=== PATIENT | female | born 1980 | race African-American/Black ===

== ENCOUNTER 2016-05-24 21:00 | Emergency (ER) | payer OTHER ==
[~2016-05-24] VITALS: Ht 162.6 cm; Wt 97.5 kg
--- NOTE | ~2016-05-24 | EKG ---
[place] [address] [facility] [email or web address] [address] ELECTROCARDIOGRAM REPORT Name: LUISA NORTON Room #: DEP [facility]#: [id number] Admission: 05/24/16 Attend Phys: Discharge: 05/25/16 Date of : 80 Report #: [id number] THIS REPORT FOR: //name// [facility] ED Test Date: 2016-05-24 Test Time: 21:11:12 Pat Name: LUISA NORTON Department: Room: Gender: F Certified Surgical Tech/First Assistant: Paula VANCE : 1980 Requested By: Murphy Jacob Order Number: [id number] MD: Jovanny Argueta Measurements Intervals [place] Rate: 86 P: 59 [place]: 149 QRS: 8 QRSD: 88 T: 45 QT: 368 QTc: 440 Interpretive Statements Sinus rhythm Borderline T abnormalities, anterior leads Baseline wander in lead(s) V6 Compared to ECG 07/31/2015 10:38:56 T-wave abnormality now present Electronically Signed On 05-25-2016 8:32:37 CDT by Jovanny Argueta [email or web address] <ELECTRONICALLY SIGNED> By: Jovanny Argueta MD, [facility] 05/25/16 0832 10 10 Jovanny Argueta MD, [facility] /EPI
[~2016-05-24 21:00] MED LIST: ACETAMINOPHEN325 M1 PO; COLACE100 MG PO; FLAGYL500 MG PO; HYDROCODON-ACE1 EAC8 PO; IBUPROFEN 200200 M1 PO; IBUPROFEN 600600 M1 PO; IRON SUPPLEMEN325 MG PO; IRON325 PO; KEFLEX500 MG PO; NAPROSYN500 MG PO; NOHOMEMEDICATIONS; NORCO 5-325 TA1 EACH PO; NORFLEX100 MG PO; PREDNISONE 20 M20 MG PO; TRAMADOL 50 MG50 MG PO; VITAMIN B-12500 MCG PO; VITAMINC500 PO; ZANTAC 150MG T150 MG PO
[2016-05-24 21:36] LABS: HEMATOCRIT 40.2 % (37.0-47.0); HEMOGLOBIN 13.7 gm/dL (12.0-15.0); MCH 31.4 pg (26.0-34.0); MCHC 34.1 g/dL (28.0-37.0); MCV 92.1 fL (80.0-100.0); PLATELET COUNT 263 thou/uL (150-400); RBC 4.37 mil/uL (4.20-5.00); RDW 14.5 % (10.5-14.5); WBC 6.9 thou/uL (4.0-11.0)
[2016-05-24 21:38] LABS: MANUAL DIFF YES
[2016-05-24 21:52] LABS: ALKALINE PHOSPHATASE 84 U/L (46-116); ANION GAP 10 mmol/L (7-16); BUN 16 mg/dL (7-18); CALCIUM 9.3 mg/dL (8.5-10.1); CHLORIDE 103 mmol/L (98-107); CO2 27 mmol/L (21-32); CREATININE 0.9 mg/dL (0.6-1.0); DIRECT BILIRUBIN < 0.1 mg/dL (<0.1-0.3); GLUCOSE 79 mg/dL (74-106); SGOT 39 U/L (15-37); SGPT 46 U/L (30-65); SODIUM 140 mmol/L (136-145); TOTAL BILIRUBIN 0.4 mg/dL (<0.1-1.0); TOTAL PROTEIN 8.9 g/dL (6.4-8.2); TROPONIN-I < 0.04 ng/mL (<0.04-0.07)
[2016-05-24 22:02] LABS: POTASSIUM 4.1 mmol/L (3.5-5.1)
[2016-05-24 22:49] LABS: ANISOCYTOSIS SLIGHT; TOTAL CELL COUNT 100
== END 2016-05-25 | disposition home or self-care (01) ==
LOC: ER 21:00
PROVIDERS: Emergency Medicine
DX: R07.9 Chest pain, unspecified (principal); K21.9 Gastro-esophageal reflux disease without esophagitis; Z86.2 Personal history of diseases of the blood and blood-forming organs and certain disorders involving the immune mechanism; Z90.710 Acquired absence of both cervix and uterus; Z88.8 Allergy status to other drugs, medicaments and biological substances

== ENCOUNTER 2016-11-03 21:17 | Emergency (ER) | payer OTHER ==
[~2016-11-03] VITALS: Ht 160 cm; Wt 99.8 kg
[2016-11-03] MEDS ORDERED: NOHOMEMEDICATIONS (21:22)
[2016-11-03 22:33] LABS: ICTOTEST (BILI CONFIRMATORY) Negative (Negative); URINE BILIRUBIN 1+ (Negative); URINE BLOOD NEGATIVE (Negative); URINE COLOR YELLOW; URINE GLUCOSE-RANDOM* NEGATIVE (Negative); URINE KETONES 1+ (Negative); URINE LEUKOCYTES-REFLEX NEGATIVE (Negative); URINE PROTEIN (DIPSTICK) NEGATIVE (Negative); URINE SPECIFIC GRAVITY >= 1.030 (1.003-1.035); URINE UROBILINOGEN 0.2 E.U./dl (0.2-1.0)
[2016-11-04 00:07] LABS: ABSOLUTE NEUTROPHILS 2.2 thou/uL (1.4-8.2); BASOPHILS 0.7 % (0.0-2.0); EOSINOPHILS 0.9 % (0.0-3.0); HEMATOCRIT 39.8 % (37.0-47.0); HEMOGLOBIN 13.5 gm/dL (12.0-15.0); MANUAL DIFF NO; MCH 31.1 pg (26.0-34.0); MCHC 33.9 g/dL (28.0-37.0); MCV 91.7 fL (80.0-100.0); MONOCYTES 10.4 % (1.0-8.0); PLATELET COUNT 245 thou/uL (150-400); RBC 4.34 mil/uL (4.20-5.00); RDW 14.9 % (10.5-14.5); WBC 6.2 thou/uL (4.0-11.0)
[2016-11-04 00:14] LABS: CALCIUM 9.8 mg/dL (8.5-10.1); CREATININE 0.7 mg/dL (0.6-1.0); POTASSIUM 3.4 mmol/L (3.5-5.1)
[2016-11-04 00:19] LABS: ALBUMIN 4.2 g/dL (3.4-5.0); TOTAL BILIRUBIN 0.4 mg/dL (<0.1-1.0)
[2016-11-04] MEDS ORDERED: COLACE100 MG PO (01:33)
[2016-11-04] MEDS ORDERED: ULTRAM 50MG TAB50 MG PO (01:33)
== END 2016-11-04 01:52 | disposition home or self-care (01) ==
LOC: ER 21:17
PROVIDERS: Emergency Medicine; Physician Assistant
DX: R10.32 Left lower quadrant pain (principal); K21.9 Gastro-esophageal reflux disease without esophagitis; F10.99 Alcohol use, unspecified with unspecified alcohol-induced disorder; Z86.2 Personal history of diseases of the blood and blood-forming organs and certain disorders involving the immune mechanism; Z90.710 Acquired absence of both cervix and uterus

== ENCOUNTER 2017-08-24 19:22 | Emergency (ER) | payer OTHER ==
[~2017-08-24] VITALS: Ht 162.6 cm; Wt 102.1 kg
[~2017-08-24 19:22] MED LIST changes: +ANTIVERT25 MG PO; +PROTONIX40 M1 PO; +ULTRAM 50MG TAB50 MG PO
[2017-08-24] MEDS ORDERED: FLEXERIL PO (20:12)
[2017-08-24] MEDS ORDERED: SENNA-DOCUSATE1 EACH PO (20:12)
[2017-08-24] MEDS ORDERED: NORCO 5-325 TA1 EACH PO (20:12)
== END 2017-08-24 20:36 | disposition home or self-care (01) ==
LOC: ER 19:22
DX: S70.12XA Contusion of left thigh, initial encounter (principal); K21.9 Gastro-esophageal reflux disease without esophagitis; F41.9 Anxiety disorder, unspecified; Z90.710 Acquired absence of both cervix and uterus; W18.39XA Other fall on same level, initial encounter; Y92.89 Other specified places as the place of occurrence of the external cause; Y93.89 Activity, other specified; Y99.8 Other external cause status

== ENCOUNTER 2019-04-07 19:17 | Emergency (ER) | payer BC ==
[~2019-04-07] VITALS: Ht 162.6 cm; Wt 102.1 kg
[~2019-04-07 19:17] MED LIST changes: +FLEXERIL PO; +PENICILLIN V P500 MG PO; +SENNA-DOCUSATE1 EACH PO
[2019-04-07] MEDS ORDERED: ASA81BEC PO (19:21)
[2019-04-07 20:28] LABS: ABSOLUTE NEUTROPHILS 2.3 thou/uL (1.4-8.2); BASOPHILS 0.6 % (0.0-2.0); EOSINOPHILS 1.5 % (0.0-3.0); HEMOGLOBIN 12.9 gm/dL (12.0-15.0); LYMPHOCYTES 49.1 % (24.0-44.0); MCH 30.9 pg (26.0-34.0); MCHC 33.1 g/dL (28.0-37.0); MCV 93.5 fL (80.0-100.0); MONOCYTES 9.9 % (1.0-8.0); PLATELET COUNT 242 thou/uL (150-400); POLYS 38.9 % (36.0-66.0); RBC 4.17 mil/uL (4.20-5.00); RDW 14.3 % (10.5-14.5); WBC 5.8 thou/uL (4.0-11.0)
[2019-04-07 20:35] LABS: ANION GAP 10 mmol/L (7-16); BUN 17 mg/dL (7-18); CALCIUM 9.3 mg/dL (8.5-10.1); CHLORIDE 100 mmol/L (98-107); CO2 27 mmol/L (21-32); CREATININE 0.9 mg/dL (0.6-1.0); GLUCOSE 81 mg/dL (74-106); POTASSIUM 3.5 mmol/L (3.5-5.1); SODIUM 137 mmol/L (136-145)
[2019-04-07 20:45] LABS: ALBUMIN 3.9 g/dL (3.4-5.0); SGOT 16 U/L (15-37); SGPT 40 U/L (30-65); TOTAL BILIRUBIN 0.2 mg/dL (<0.1-1.0); TOTAL PROTEIN 8.6 g/dL (6.4-8.2); TROPONIN-I <0.06 ng/mL (<0.06)
[2019-04-07] MEDS ORDERED: BUTALB-APAP-CA1 EACH PO (21:02)
[2019-04-07] MEDS ORDERED: ULTRAM 50MG TAB50 MG PO (21:02)
[2019-04-07 21:20] VITALS: BP 115/67
--- NOTE | 2019-04-10 08:28 | EKG ---
[facility] [place] [address] ELECTROCARDIOGRAM REPORT Name: LUISA NORTON Room #: DEP [facility]#: [id number] Admission: 04/07/19 Attend Phys: Discharge: 04/07/19 Date of : [birth year] Report #: [id number] THIS REPORT FOR: cc: JOYCE - Becky family physician/PCP JOYCE - Becky family physician/PCP Jovanny Argueta MD [facility] THIS REPORT FOR: //name// [facility] ED Test Date: 2019-04-07 Test Time: 20:21:40 Pat Name: LUISA NORTON Department: Room: Gender: F Machine Setup Operator: MADELINE : 1980 Requested By: Maxine Naylor Order Number: [id number] MD: Jovanny Argueta Measurements Intervals [place] Rate: 70 P: 48 [place]: 159 QRS: 20 QRSD: 87 T: 29 QT: 382 QTc: 413 Interpretive Statements Sinus rhythm Normal tracing Compared to ECG 06/16/2017 14:27:37 No significant changes Electronically Signed On 04-10-2019 8:27:08 E [employer] by Jovanny Argueta [email or web address] <ELECTRONICALLY SIGNED> By: Jovanny Argueta MD, FAC 04/10/19 0827 20 20 Jovanny Argueta MD, [facility] /EPI
== END 2019-04-07 21:20 | disposition home or self-care (01) ==
LOC: ER 19:17
PROVIDERS: Physician Assistant
DX: B34.9 Viral infection, unspecified (principal); M54.6 Pain in thoracic spine; M79.605 Pain in left leg; K21.9 Gastro-esophageal reflux disease without esophagitis; Z86.2 Personal history of diseases of the blood and blood-forming organs and certain disorders involving the immune mechanism; Z90.710 Acquired absence of both cervix and uterus; Z98.51 Tubal ligation status; Z88.8 Allergy status to other drugs, medicaments and biological substances

== ENCOUNTER 2019-10-17 08:48 | Emergency (ER) | payer OTHER ==
[~2019-10-17] VITALS: Ht 162.6 cm; Wt 99.8 kg
[~2019-10-17 08:48] MED LIST changes: +ASA81BEC PO; +BUTALB-APAP-CA1 EACH PO
[2019-10-17] MEDS ORDERED: NOHOMEMEDICATIONS (09:07)
[2019-10-17 10:07] LABS: ABSOLUTE NEUTROPHILS 2.2 thou/uL (1.4-8.2); BASOPHILS 0.9 % (0.0-2.0); HEMATOCRIT 37.6 % (37.0-47.0); HEMOGLOBIN 12.6 gm/dL (12.0-15.0); LYMPHOCYTES 43.1 % (24.0-44.0); MCH 31.5 pg (26.0-34.0); MCHC 33.5 g/dL (28.0-37.0); MONOCYTES 10.4 % (1.0-8.0); PLATELET COUNT 249 thou/uL (150-400); POLYS 43.6 % (36.0-66.0); RDW 14.3 % (10.5-14.5)
[2019-10-17 10:26] LABS: APTT 31.3 Seconds (24.5-32.8); D-DIMER 0.78 ug/mLFEU (0.19-0.50); INR 1.1
[2019-10-17 10:53] LABS: CALCIUM 8.4 mg/dL (8.5-10.1); CREATININE 0.8 mg/dL (0.6-1.0); POTASSIUM 4.2 mmol/L (3.5-5.1)
[2019-10-17 10:56] LABS: ALBUMIN 3.3 g/dL (3.4-5.0); MAGNESIUM 1.9 mg/dL (1.8-2.4); TOTAL BILIRUBIN 0.3 mg/dL (0.2-1.0); TOTAL PROTEIN 7.5 g/dL (6.4-8.2)
[2019-10-17] MEDS ORDERED: NAPROSYN500 MG PO (11:07)
[2019-10-17 11:16] VITALS: BP 114/71
[2019-10-17 11:18] LABS: AMP/METHAMP Negative (Negative); BARBITURATES Negative (Negative); BENZODIAZEPINES Negative (Negative); COCAINE Negative (Negative); METHADONE Negative (Negative); OPIATES Negative (Negative); PCP Negative (Negative)
--- NOTE | 2019-10-17 16:28 | EKG ---
[facility] [place] [address] ELECTROCARDIOGRAM REPORT Name: LUISA NORTON Room #: DEP [facility].#: [id number] Admission: 10/17/19 Attend Phys: Discharge: 10/17/19 Date of : [birth year] Report #: [id number] THIS REPORT FOR: cc: JOYCE - Becky family physician/PCP JOYCE - Becky family physician/PCP Jovanny Argueta MD [facility] THIS REPORT FOR: //name// [facility] ED Test Date: 2019-10-17 Test Time: 09:04:59 Pat Name: LUISA NORTON Department: Room: Gender: F Air Chipper: [facility] : 1980 Requested By: Charanjit Adler Order Number: [id number] MD: Jovanny Argueta Measurements Intervals [place] Rate: 72 P: 27 [place]: 162 QRS: 26 QRSD: 90 T: 31 QT: 395 QTc: 433 Interpretive Statements Sinus rhythm Normal tracing Compared to ECG 04/07/2019 20:21:40 No significant changes Electronically Signed On 10-17-2019 16:28:18 CDT by Jovanny Argueta [email or web address] <ELECTRONICALLY SIGNED> By: Jovanny Argueta MD, FACC 10/17/19 1628 0904 0904 Jovanny Argueta MD, [facility] /EPI
== END 2019-10-17 11:16 | disposition home or self-care (01) ==
LOC: ER 08:48
PROVIDERS: Emergency Medicine
DX: R07.89 Other chest pain (principal); R51 Headache; M79.652 Pain in left thigh; M25.562 Pain in left knee; R20.0 Anesthesia of skin; R20.2 Paresthesia of skin; M79.89 Other specified soft tissue disorders; R68.2 Dry mouth, unspecified; H53.8 Other visual disturbances; K59.00 Constipation, unspecified; K21.9 Gastro-esophageal reflux disease without esophagitis; Z90.711 Acquired absence of uterus with remaining cervical stump; Z98.51 Tubal ligation status; Z88.8 Allergy status to other drugs, medicaments and biological substances; Z86.718 Personal history of other venous thrombosis and embolism

== ENCOUNTER 2020-01-31 04:03 | Emergency (ER) | payer BC ==
[~2020-01-31] VITALS: Ht 162.6 cm; Wt 99.8 kg
[2020-01-31 07:03] VITALS: BP 123/84
--- NOTE | 2020-02-01 07:22 | EKG ---
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
== END 2020-01-31 07:04 | disposition home or self-care (01) ==
LOC: ER 04:03
DX: R07.89 Other chest pain (principal); R10.13 Epigastric pain; M25.512 Pain in left shoulder; M54.2 Cervicalgia; K21.9 Gastro-esophageal reflux disease without esophagitis; I25.10 Atherosclerotic heart disease of native coronary artery without angina pectoris; Z86.2 Personal history of diseases of the blood and blood-forming organs and certain disorders involving the immune mechanism; Z90.710 Acquired absence of both cervix and uterus

== ENCOUNTER 2020-05-30 20:21 | Emergency (ER) | payer BC ==
[~2020-05-30] VITALS: Ht 162.6 cm; Wt 101.6 kg
[2020-05-30 20:44] LABS: URINE BILIRUBIN NEGATIVE (Negative); URINE BLOOD NEGATIVE (Negative); URINE CLARITY CLEAR; URINE COLOR YELLOW; URINE GLUCOSE-RANDOM* NEGATIVE (Negative); URINE KETONES NEGATIVE (Negative); URINE LEUKOCYTES-REFLEX NEGATIVE (Negative); URINE NITRITE-REFLEX NEGATIVE (Negative); URINE PROTEIN (DIPSTICK) NEGATIVE (Negative); URINE UROBILINOGEN 0.2 E.U./dl (0.2-1.0)
[2020-05-30 21:05] LABS: ABSOLUTE NEUTROPHILS 1.8 thou/uL (1.4-8.2); BASOPHILS 0.5 % (0.0-2.0); EOSINOPHILS 1.8 % (0.0-3.0); HEMATOCRIT 41.3 % (37.0-47.0); HEMOGLOBIN 13.8 gm/dL (12.0-15.0); LYMPHOCYTES 57.2 % (24.0-44.0); MCH 31.4 pg (26.0-34.0); MCHC 33.4 g/dL (28.0-37.0); MONOCYTES 10.6 % (1.0-8.0); PLATELET COUNT 215 thou/uL (150-400); POLYS 29.9 % (36.0-66.0); RDW 14.6 % (10.5-14.5); WBC 5.9 thou/uL (4.0-11.0)
[2020-05-30 21:24] LABS: ALBUMIN 3.8 g/dL (3.4-5.0); ANION GAP 9 mmol/L (7-16); BUN 14 mg/dL (7-18); CALCIUM 9.1 mg/dL (8.5-10.1); CHLORIDE 104 mmol/L (98-107); CO2 27 mmol/L (21-32); CREATININE 0.9 mg/dL (0.6-1.0); DIRECT BILIRUBIN < 0.1 mg/dL (<0.1-0.2); GLUCOSE 89 mg/dL (74-106); LIPASE 120 U/L (73-393); POTASSIUM 3.7 mmol/L (3.5-5.1); SGOT 18 U/L (15-37); SGPT 31 U/L (30-65); SODIUM 140 mmol/L (136-145); TOTAL BILIRUBIN 0.3 mg/dL (0.2-1.0); TOTAL PROTEIN 8.4 g/dL (6.4-8.2)
[2020-05-30] MEDS ORDERED: BENTYL 10 MG CA10 M1 PO (22:32)
[2020-05-30] MEDS ORDERED: PHENERGAN 25 MG25 M1 PO (22:32)
[2020-05-30 22:45] VITALS: BP 109/77
== END 2020-05-30 22:45 | disposition home or self-care (01) ==
LOC: ER 20:21
PROVIDERS: Nurse Practitioner
DX: R10.12 Left upper quadrant pain (principal); Z20.822 Contact with and (suspected) exposure to COVID-19; E66.9 Obesity, unspecified; K21.9 Gastro-esophageal reflux disease without esophagitis; Z88.8 Allergy status to other drugs, medicaments and biological substances; Z98.51 Tubal ligation status; Z90.710 Acquired absence of both cervix and uterus